=== PATIENT | female | born 1970 | race Caucasian/White ===

== ENCOUNTER 2025-04-25 08:35 | Outpatient (AMB) | payer OTHER, SELFPAY ==
--- NOTE | 2025-04-25 08:49 | A.PHYSOV ---
Vital Signs 04/25/25 08:53 Height 5 ft 3 in Weight 190 lb BMI 33.7 Intake Visit Reasons: Follow up after PT Intake Note: Patient is a 54 year old female here today for follow up after physical therapy. Share Holder Required: No Allergies erythromycin base Allergy (Unknown, Verified 04/25/25 08:55) Unknown fluticasone Allergy (Unknown, Verified 04/25/25 08:55) Unknown oxycodone (OXYCODONE) Allergy (Unknown, Verified 04/25/25 08:55) VOMITING Sulfa (Sulfonamide Antibiotics) (SULFA (SULFONAMIDE ANTIBIOTICS)) Allergy (Unknown, Verified 04/25/25 08:55) DIFF BREATHING HPI Comments Details: History of Present Illness The patient is a 54 year old female presenting for follow-up evaluation of left-sided low back pain. The pain is primarily located in her back and radiates down her left leg to the knee, characteristic of sciatica. She reports minimal pain in the groin. Symptoms are exacerbated by being on her feet and sometimes by sitting. She recently completed a course of physical therapy, attending twice a week for 6 weeks, which provided only a couple of days of relief before symptoms returned to baseline. Patient reports pain level today of 7/10. Her symptoms are worse with activity and improved with rest. Patient has seen mild relief with naproxen, prednisone and methocarbamol. She is frustrated at her lack of improvement. Pain Description - Location: The pain is primarily on the left side, localized to the back rather than the hip or groin. - Radiation: The pain radiates down her left leg to the knee. - Quality: The patient notes an occasional popping sensation in the hip area with movement. - Exacerbating Factors: Pain is worsened by being on her feet, certain activities, and sometimes sitting on her couch. - Relieving Factors: She finds some relief by stopping to stretch in a specific way. - Functional Impact: The pain interferes with her work, forcing her to stop her activities to stretch. [facility] Surgical History History of neck surgery Social History Alcohol intake: current Alcohol intake frequency: does not drink Patient Tobacco Use Status: Never used Tobacco Use of substances other than those prescribed or required for medical reasons: No Current occupational status: employed Review of Systems Narrative Review of Systems - Musculoskeletal: Reports left-sided low back pain. - She also reports occasional popping sensation with hip movement. - Denies significant groin pain. - Neurological: Reports pain radiating down the left leg to the knee. - Denies claustrophobia. - Ophthalmologic: Reports a diagnosis of closed-angle glaucoma in the right eye. Physical Exam Exam Exam: Physical Exam Lumbar Spine: Examination of her lumbar spine, there is no visible swelling or deformity. She is tender to left lower lumbar facets. She has full range of motion of the lumbar spine. She does have an increase in pain with facet loading. Special Tests: Lhermittes sign was negative Heel Toe walk is normal Left straight leg raise: Positive left Right straight leg raise: Negative Special tests Ba test is negative Ganslen's test is negative SI Joint compression test negative Nguyen test negative Piriformis stretch is negative Lower Extremities: Full range of motion bilateral lower extremities. No calf pain or edema. Neuro: Sensation: Intact to lower extremities bilaterally Strength L2 (Psoas): 5/5 on the left and 5/5 on the right. L3 (Quads): 5/5 on the left and 5/5 on the right. L4 (Ant tibialis): 5/5 on the left and 5/5 on the right. L5 (EHL) 5/5 on the left and 5/5 on the right. S1 (Gastroc): 5/5 on the left and 5/5 on the right. DTR L4: (Patellar) Left 2 Right 2 S1: (Achilles) Left 2 Right 2 Babinski Downgoing No pathologic clonus. No involuntary movement. Vital Signs: BMI result Body Mass Index 33.7 Assessment & Plan Assessment & Plan (1) Lumbar radiculopathy: Code(s): M54.16 - Radiculopathy, lumbar region Category: Medical (2) Lumbar spondylosis: Code(s): M47.816 - Spondylosis without myelopathy or radiculopathy, lumbar region Category: Medical Plan Pain Management - Affect: The patient expresses frustration with her physical decline since turning 54, stating things have gone downhill and the situation sucks. - Analgesia: The patient confirmed she tried medications, but did not specify which ones or their effectiveness. - Adverse Effects: Not discussed during the encounter. - Activities of Daily Living: Pain is exacerbated by prolonged standing, certain activities, and sometimes sitting. - It impacts her ability to perform her job, as she sometimes has to stop working to stretch. - Aberrant Drug Related Behaviors: No aberrant behaviors were noted or discussed. Plan Patient was informed and verbally consented to the use of an ambient scribe for clinic note documentation during this visit. 1. Low Back Pain With Left-Sided Sciatica The patient presents with persistent left-sided low back pain with radicular symptoms extending to the knee, which have not responded to a course of physical therapy. The pain's location in the back rather than the groin suggests a lumbar etiology, such as a pinched nerve or disc pathology. At this point she has failed conservative treatment. Recommend MRI of her lumbar spine as we are considering epidural injection versus surgery. Follow-up post MRI. In the meantime she will continue her home exercise plan and medications as prescribed. Discussion Notes I discussed with the patient that her symptoms of pain in the back that travels down her leg are more indicative of a lumbar spine issue, like a pinched nerve, rather than hip arthritis. Given that physical therapy did not provide lasting relief, I recommended we proceed with an MRI of her lumbar spine for further evaluation. I explained the process, noting that my office will place the order, and the MRI department will then coordinate with her for insurance approval and scheduling. I confirmed that she is not claustrophobic and has no metal in her body, which would be contraindications for the scan. We will schedule a follow-up appointment to review the MRI report and develop a more targeted treatment plan. Patient Instructions - We are ordering an MRI of your lower back to help figure out the cause of your pain. - The MRI department will contact you to get insurance approval and schedule your appointment. - After your MRI is complete, we will schedule a follow-up visit to discuss the results and decide on the next steps for your treatment. Orders: Orders MR lumbar spine wo con Today M51.16 - Intervertebral disc disorders with radiculopathy, lumbar region Coding Level of Care Code Tele Est Pt Level 3 (88557) Diagnoses Lumbar radiculopathy M54.16 Lumbar spondylosis M47.816
[2025-04-25 08:53] VITALS: BMI 33.7
== END 2025-04-25 09:08 | disposition home or self-care (01) ==
LOC: HO.HPHYS 08:36
PROVIDERS: PCP Internal Medicine; Visit Provider Physician Assistant
DX: M54.16 Radiculopathy, lumbar region (principal); M47.816 Spondylosis without myelopathy or radiculopathy, lumbar region
CPT/HCPCS: 99213

== ENCOUNTER → 2025-04-25 08:35 | Outpatient (BNVA) | payer OTHER, SELFPAY | PROVIDERS: PCP Internal Medicine; Visit Provider Physician Assistant | DX: M54.16 Radiculopathy, lumbar region (principal); M47.816 Spondylosis without myelopathy or radiculopathy, lumbar region | CPT/HCPCS: 99212 ==